=== PATIENT | female | born 1965 | race Caucasian/White ===

== ENCOUNTER 2016-12-07 19:26 | Emergency (ER) | payer MEDICAID ==
[2016-12-07 19:35] VITALS: BP 174/105
[2016-12-07] MEDS ORDERED: Acetaminophen/HYDROcodone 325-5 MG Tab PO ONE (20:13)
--- NOTE | 2016-12-07 20:15 | EDM.PDOC ---
ED HPI GENERAL MEDICAL PROBLEM - General Chief Complaint: Lower Extremity Injury/Pain Stated Complaint: RIGHT FOOT SWELLING Time Seen by Provider: 12/07/16 20:13 Source of Information: Reports: Patient History Limitations: Reports: No Limitations - History of Present Illness INITIAL COMMENTS - FREE TEXT/NARRATIVE: Patient is a 51-year-old female presents ED complaining of pain to the dorsal aspect of the right foot. Patient kicked a large dog that was attacking their small dog. This occurred this past Monday. She developed some swelling and bruising to this area. This has decreased throughout the course of the week. States today while at work she moving some items on a palate tsering re- aggravating the injury. She has difficulty with placing weight on it. 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 Denies: Numbness, Tingling ED EXAM, GENERAL - Physical Exam Exam: See Below Exam Limited By: No Limitations General Appearance: Alert, WD/WN, No Apparent Distress Ears: Hearing Grossly Normal Nose: Normal Inspection Throat/Mouth: Normal Voice, No Airway Compromise Neck: Normal Inspection, Supple Respiratory/Chest: No Respiratory Distress, No Accessory Muscle Use Cardiovascular: Normal Peripheral Pulses, Regular Rate, Rhythm Peripheral Pulses: 2+: Posterior Tibial (R), Dorsalis Pedis (R) Extremities: Normal Inspection, Normal Range of Motion, No Pedal Edema, Normal Capillary Refill, Other (Tenderness to the dorsal aspect of the foot proximal to the ankle. No swelling, ecchymosis, or bony abnormalities present.) Neurological: Alert, Oriented, CN II-XII Intact, Normal Cognition, No Motor/ Sensory Deficits Psychiatric: Normal Affect, Normal Mood Skin Exam: Warm, Dry, Intact, Normal Color Course - Vital Signs Last Recorded V/S: Last Vital Signs Temp 97.6 F 12/07/16 19:31 Pulse 76 12/07/16 19:31 Resp 16 12/07/16 19:31 BP 174/105 H 12/07/16 19:31 Pulse Ox 97 12/07/16 19:31 - Orders/Labs/Meds Meds: Medications Discontinued Medications Generic Name Dose Route Start Last Admin Trade Name Arturq PRN Reason Stop Dose Admin Hydrocodone Bitart/Acetaminophen 1 tab 12/07/16 20:13 12/07/16 20:22 [place] 325-5 Mg PO 12/07/16 20:14 1 tab ONETIME ONE Administration - Re-Assessments/Exams Free Text/Narrative Re-Assessment/Exam: Obtained x-ray of the right foot revealing no acute bony abnormalities noted. Will discharge patient home with instructions as documented. Departure - Departure Time of Disposition: 21:44 Disposition: Home, Self-Care 01 Condition: Good Clinical Impression: Right foot sprain Qualifiers: Encounter type: initial encounter Qualified Code(s): S93.601A - Unspecified sprain of right foot, initial encounter - Discharge Information Instructions: Foot Sprain Referrals: PCP,None [Primary Care Provider] - Forms: ED Department Discharge Additional Instructions: X-ray of the right foot did not reveal any acute bony abnormalities. Thus etiology of current complaint is most likely a sprain and will take approximately 4-6 weeks to completely heal. Refrain from any activities that cause worsening pain. Take Tylenol and ibuprofen in alternating fashion. Follow- up with PCP as needed for reevaluation if symptoms have not improved over the next couple weeks. Return to ED for any new or worsening symptoms.
--- NOTE | 2016-12-08 06:51 | CR ---
Right foot: Four views of the right foot were obtained. Comparison: No prior study. Minimal joint space narrowing and osteophytes noted within the first MTP joint. Minimal spur noted at the attachment of the Achilles tendon to the calcaneus. Minimal plantar spur is seen. Mild soft tissue swelling is seen. No definite acute fracture is appreciated. Impression: 1. Soft tissue swelling. 2. Other incidental findings. 3. No acute bony abnormality is definitely seen. If patient continues to remain symptomatic, repeat study in 10-14 days is again recommended. Diagnostic code #2 I agree with preliminary report issued by [facility] ([facility] preliminary report dictated on 12/07/16, 10:08 PM Central Time)
== END 2016-12-07 21:54 | disposition home or self-care (01) ==
LOC: JD.ED 19:26
DX: S93.601A Unspecified sprain of right foot, initial encounter (principal); I10 Essential (primary) hypertension; F17.210 Nicotine dependence, cigarettes, uncomplicated; Z90.49 Acquired absence of other specified parts of digestive tract; Z98.51 Tubal ligation status; Z79.899 Other long term (current) drug therapy; W22.8XXA Striking against or struck by other objects, initial encounter
CPT/HCPCS: 73630; 99284; A9270; 99283

== ENCOUNTER 2016-12-28 15:02 | Emergency (ER) | payer MEDICAID ==
[2016-12-28 15:56] VITALS: BP 164/101
--- NOTE | 2016-12-28 18:43 | EDM.PDOC ---
ED HPI GENERAL MEDICAL PROBLEM - General Chief Complaint: Laceration Stated Complaint: HIT HEAD ON A TREE Time Seen by Provider: 12/28/16 18:43 Source of Information: Reports: Patient History Limitations: Reports: No Limitations - History of Present Illness INITIAL COMMENTS - FREE TEXT/NARRATIVE: 51-year-old female attends the ED with injury to her vertex of her scalp. Patient states she bent over to hand picker a dog leash and when she stood up she slammed the top of her head into a tree branch. She was wearing her eyeglasses on the top of her head and it was believed that raisa of the eyeglasses dug into her scalp with resultant lacerations and puncture wounds. Injury occurred approximate 4 hours ago. Last tetanus toxoid update was about 1996 or . She will therefore be updated today. Onset: Today Onset Date: 12/28/16 Onset Time: 14:25 Duration: Hour(s): Location: Reports: Head Quality: Reports: Ache, Burning Severity: Moderate Improves with: Reports: None Worsens with: Reports: None Context: Reports: Trauma Associated Symptoms: Reports: Other (Neck is a little stiff and sore.) Treatments [employer]: Reports: Other (see below) (None.) Head Pain Score (Numeric/FACES): 8 - Related Data Allergies Allergy/AdvReac Type Severity Reaction Status Date / Time No Known Allergies Allergy Verified 12/07/16 19:35 Home Meds: Home Meds Lisinopril [Prinivil] 10 mg PO DAILY 12/28/16 [History] Past Medical History Cardiovascular History: Reports: Hypertension 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 - Past Surgical History GI Surgical History: Reports: Cholecystectomy Female Surgical History: Reports: Tubal Ligation Social & Family History - Family History Family Medical History: Noncontributory - Tobacco Use Smoking Status *Q: Current Every Day Smoker Years of Tobacco use: 20 Packs/Tins Daily: 1 - Caffeine Use Caffeine Use: Reports: Coffee, Soda, Tea - Recreational Drug Use Recreational Drug Use: No - Living Situation & Occupation Living situation: Reports: Single Occupation: Employed ED ROS GENERAL - Review of Systems Review Of Systems: See Below Constitutional: Reports: No Symptoms HEENT: Reports: No Symptoms Respiratory: Reports: No Symptoms Cardiovascular: Reports: No Symptoms Endocrine: Reports: No Symptoms GI/Abdominal: Reports: No Symptoms : Reports: No Symptoms Musculoskeletal: Reports: Neck Pain Skin: Reports: No Symptoms Neurological: Reports: Headache Psychiatric: Reports: No Symptoms ED EXAM, SKIN/RASH Exam: See Below Exam Limited By: No Limitations General Appearance: Alert, WD/WN, No Apparent Distress Eye Exam: Bilateral Eye: Normal Inspection Throat/Mouth: Normal Inspection, Normal Lips, Normal Oropharynx, Other (No dental trauma or injury to her tongue.) Head: Other (Vision has suffered a puncture wound to the midline of the vertex of her scalp and a 2-2.5 cm laceration to the right of the midline of the vertex of her scalp. Hair is matted with dried blood.) Neck: Supple, Tender Lateral (Tender laterally but she has full unrestricted range of motion) Respiratory/Chest: No Respiratory Distress, Lungs Clear, Normal Breath Sounds, No Accessory Muscle Use ( and I am not worried about underlying fracture.) ED SKIN PROCEDURES - Laceration/Wound Repair [place] Head Lac/Wound length In cm: 3.0 Appearance: Subcutaneous (To 1.5 cm lacerations repaired) Distal NVT: Neuro & Vascular Intact Anesthetic Type: Local Local Anesthesia - Lidocaine (Xylocaine): 1% Plain Local Anesthetic Volume: 3cc Exploration/Debridement/Repair: Wound Explored Closed with: Sutures Suture Size: 4-0 # of Sutures: 6 Suture Type: Prolene, Interrupted, Simple Course - Vital Signs Last Recorded V/S: Last Vital Signs Temp 37.4 C 12/28/16 15:35 Pulse 81 12/28/16 15:35 Resp 20 12/28/16 15:35 BP 164/101 H 12/28/16 15:35 Pulse Ox 98 12/28/16 15:35 - Orders/Labs/Meds Meds: Medications Discontinued Medications Generic Name Dose Route Start Last Admin Trade Name Freq PRN Reason Stop Dose Admin Diphtheria/Tetanus/Acell Pertussis 0.5 ml 12/28/16 18:46 12/28/16 19:08 Adacel IM 12/28/16 18:47 0.5 ml .ONCE ONE Administration Ibuprofen 800 mg 12/28/16 19:29 12/28/16 19:32 Motrin PO 12/28/16 19:30 800 mg ONETIME ONE Administration Ibuprofen Confirm 12/28/16 19:33 12/28/16 19:51 Motrin Administered 12/28/16 19:34 Not Given Dose 800 mg .ROUTE .STK-MED ONE Lidocaine HCl 10 ml 12/28/16 18:46 12/28/16 19:09 Xylocaine 1% INJECT 12/28/16 18:47 10 ml ONETIME ONE Administration - Radiology Interpretation Free Text/Narrative:: 51-year-old female presents to the ED with an acute injury to the vertex of her scalp. She states she bent over to hand picker a dog leash and banged the top of her head on a large tree branch. Unfortunately she was wearing her reading glasses on top of her head and they dug into her scalp with resultant lacerations and puncture wound. Tetanus toxoid needs to be updated today. Plan wounds will be cleansed and it appears that at least one of the wounds will require sutures as it is approximately 2 cm in length and possibly a little longer. Not know for sure until it's cleaned up. There seems to be a puncture wound in the midline that may or may not need sutures as well. - Re-Assessments/Exams Free Text/Narrative Re-Assessment/Exam: 12/28/16 19:32 to 1.5 cm lacerations were identified on the vertex of her scalp. Each was cleansed and explored no foreign bodies were identified. They were anesthetized with 1% lidocaine and 3 4-0 Prolene sutures were placed in each wound. Wounds will be cleansed daily with soap and water via showering. Then topical antibiotic to be placed such as bacitracin or Polysporin. Sutures need to be removed in 10 days' time. Departure - Departure Time of Disposition: 19:30 Disposition: Home, Self-Care 01 Condition: Fair Clinical Impression: Laceration of scalp Qualifiers: Encounter type: initial encounter Qualified Code(s): S01.01XA - Laceration without foreign body of scalp, initial encounter Repetitive strain injury of cervical spine Qualifiers: Encounter type: initial encounter Qualified Code(s): S16.1XXA - Strain of muscle, fascia and tendon at neck level, initial encounter - Discharge Information Instructions: Laceration Care, Adult, [id number] Referrals: PCP,None [Primary Care Provider] - Forms: ED Department Discharge Additional Instructions: Evaluation the emergency room today in regards to injuries sustained to the vertex of the midline of your scalp. Blunt force trauma with your eyeglasses on top of her head resulted in these digging into your scalp with resultant lacerations. Two 1.5cm lacerations were identified. Wounds were cleansed and sutured under local anesthetic with 3 sutures placed in each wound. Treatment at home is to day to cleanse the wounds with soap and water showering is okay. Then apply topical antibiotic such as bacitracin or Polysporin to each wound once daily to prevent secondary infection. Sutures will need to be removed in 10 days' time.
[2016-12-28] MEDS ORDERED: Lidocaine 1% 10 ML MDV INJECT ONE (18:46)
[2016-12-28] MEDS ORDERED: Diphtheria,Pertussis(Acell),Tetanus Vaccine 0.5 ML SDV IM ONE (18:46)
[2016-12-28] MEDS ORDERED: Ibuprofen 800 MG Tab PO ONE (19:29)
[2016-12-28] MEDS ORDERED: Ibuprofen 800 MG Tab ONE (19:33)
== END 2016-12-28 19:52 | disposition home or self-care (01) ==
LOC: JD.ED 15:02
DX: S01.01XA Laceration without foreign body of scalp, initial encounter (principal); S16.1XXA Strain of muscle, fascia and tendon at neck level, initial encounter; I10 Essential (primary) hypertension; Z90.49 Acquired absence of other specified parts of digestive tract; Z98.51 Tubal ligation status; Z79.899 Other long term (current) drug therapy; F17.210 Nicotine dependence, cigarettes, uncomplicated; W22.8XXA Striking against or struck by other objects, initial encounter; Z23 Encounter for immunization
CPT/HCPCS: 12005; 90471; 90715; 99283; A9270; 12002